=== PATIENT | female | born 1950 | race Caucasian/White ===

== ENCOUNTER 2020-10-19 18:36 | Inpatient (IN) ==
[2020-10-19] MEDS ORDERED: ONDANSETRON 4 MG/2 ML VIAL IV STA (20:42)
[2020-10-19] MEDS ORDERED: ASPIRIN 325 MG TABLET PO STA (20:42)
[2020-10-19] MEDS ORDERED: ALUM/MAG/SIMETH/LIDO VISC 1:1 30 ML BOTTLE PO STA (20:42)
[2020-10-19] MEDS ORDERED: MORPHINE 4 MG/1 ML VIAL IV STA (20:49)
[2020-10-19] MEDS ORDERED: NITROGLYCERIN 2% OINT 1 INCH/GM PACK TOP STA (20:49)
[2020-10-19 21:31] LABS: Basophils % 0.5 % (0.0-0.8); Hematocrit 43.4 VOL% (35.7-47.0); Hemoglobin 14.1 GM/DL (12.0-16.0); Immature Granulocytes % 0.6 %; Immature Granulocytes Absolute 0.05 #; Lymphocytes # 1.9 10*3/uL (1.4-4.0); Lymphocytes % 24.7 % (21.3-54.2); Mean Corpuscular HGB Conc 32.5 GM/DL (32-36); Mean Corpuscular Volume 84.3 FL (87-102); Monocytes % 7.1 % (1.7-12.7); Neutrophils % 67.1 % (38.7-73.9); Platelet Count 220 T/CUMM (130-400); Red Blood Count 5.15 MC/CUMM (3.8-5.5); White Blood Count 7.8 T/CUMM (4-12)
[2020-10-19 21:41] LABS: INR 0.9; PT Patient Result 9.8 SECS (9.8-11.9)
[2020-10-19 21:52] LABS: Alanine Aminotransferase 17 U/L (13-56); Albumin 3.4 G/DL (3.4-5.0); Alkaline Phosphatase 98 U/L (45-117); Aspartate Amino Transferase 12 U/L (0-37); Bilirubin,Total < 0.39 MG/DL (0.2-1.0); Blood Urea Nitrogen 27 MG/DL (7-18); Calcium 8.8 MG/DL (8.5-10.1); Carbon Dioxide 25 MMOL/L (21-32); Estimated Glom Filtration Rate 28 ML/MIN; Glucose 140 MG/DL (74-106); Osmolality,Calculated 285.4 MOS/KG (273-304); Potassium 4.3 MMOL/L (3.5-5.1); Sodium 140 MMOL/L (136-145); Total Protein 6.7 G/DL (6.4-8.3)
[2020-10-19 21:53] LABS: Ferritin 148.7 ng/ml (8-252)
[2020-10-19] MEDS ORDERED: cefTRIAXone 1,000 MG in SODIUM CHLORIDE 0.9% 100 ML IV STA (22:25)
[2020-10-19] MEDS ORDERED: ALBUTEROL NEB SOLN 5 MG/ML 20 ML/BOTTLE CONT NEB STA (22:25)
[2020-10-19] MEDS ORDERED: methylPREDNISolone SOD SUC 125 MG/2 ML VIAL IV STA (22:25)
[2020-10-19] MEDS ORDERED: GLUCAGON 1 MG VIAL IM PRN (23:55)
[2020-10-19] MEDS ORDERED: ONDANSETRON 4 MG/2 ML VIAL IV PRN (23:55)
[2020-10-19] MEDS ORDERED: MORPHINE 4 MG/1 ML VIAL IV PRN (23:55)
[2020-10-19] MEDS ORDERED: DEXTROSE 50% 25 GM/50 ML VIAL IV PRN (23:55)
[2020-10-20 00:14] LABS: Troponin I < 0.015 NG/ML (0.00-0.045)
[2020-10-20] MEDS: ALBUTEROL/IPRATROPIUM 3 ML NEB RESP TX SCH ×7 (00:45→23:39)
[2020-10-20] MEDS: SODIUM CHLORIDE 0.9% 1,000 ML IV SCH ×2 (01:47→21:19)
[2020-10-20 03:03] LABS: Basophils % 0.2 % (0.0-0.8); Hematocrit 43.2 VOL% (35.7-47.0); Hemoglobin 13.7 GM/DL (12.0-16.0); Immature Granulocytes % 0.6 %; Immature Granulocytes Absolute 0.06 #; Lymphocytes # 0.5 10*3/uL (1.4-4.0); Lymphocytes % 4.8 % (21.3-54.2); Mean Corpuscular HGB Conc 31.7 GM/DL (32-36); Mean Corpuscular Volume 86.2 FL (87-102); Mean Platelet Volume 10.9 FL (9.6-12.0); Monocytes % 1.3 % (1.7-12.7); Neutrophils % 93.1 % (38.7-73.9); Platelet Count 171 T/CUMM (130-400); Red Blood Count 5.01 MC/CUMM (3.8-5.5); Red Cell Distribution Width 14.1 % (9.3-17.3); White Blood Count 9.9 T/CUMM (4-12)
[2020-10-20 03:37] LABS: Alanine Aminotransferase 15 U/L (13-56); Albumin 3.3 G/DL (3.4-5.0); Alkaline Phosphatase 96 U/L (45-117); Aspartate Amino Transferase 14 U/L (0-37); Bilirubin,Total < 0.39 MG/DL (0.2-1.0); Blood Urea Nitrogen 31 MG/DL (7-18); Calcium 8.4 MG/DL (8.5-10.1); Carbon Dioxide 20 MMOL/L (21-32); Estimated Glom Filtration Rate 25 ML/MIN; Glucose 343 MG/DL (74-106); HDL Cholesterol 56 MG/DL (40-60); Osmolality,Calculated 295.7 MOS/KG (273-304); Potassium 3.2 MMOL/L (3.5-5.1); Risk Ratio 3.71; Sodium 138 MMOL/L (136-145); Triglycerides 80 MG/DL (2-150)
[2020-10-20 03:38] LABS: Band Neutrophils 4 % (0-10); Lymphocytes 4 % (20-55); Segmented Neutrophils 91 % (50-85); Total Cells Counted 100
[2020-10-20 03:45] LABS: Platelet Estimate Normal
[2020-10-20 03:46] LABS: Hypochromasia Slight
[2020-10-20] MEDS: methylPREDNISolone SOD SUC 40 MG/1 ML VIAL IV SCH ×3 (06:36→21:44)
[2020-10-20] MEDS: DOCUSATE SODIUM 100 MG CAPSULE PO SCH ×2 (08:19→21:43)
[2020-10-20] MEDS: PANTOPRAZOLE 40 MG TABLET PO SCH (08:20)
[2020-10-20] MEDS ORDERED: DEXTROSE 50% 25 GM/50 ML VIAL IV PRN (10:11)
[2020-10-20] MEDS: POTASSIUM CHLORIDE 20 MEQ TABLET PO SCH (10:23)
[2020-10-20] MEDS: amLODIPine 5 MG TABLET PO SCH (10:59)
[2020-10-20] MEDS: MOMETASONE/FORMOTEROL 200-5 INHALER 8.8 GM INH SCH (10:59)
[2020-10-20] MEDS: INSULIN LISPRO 100 UNIT/ML SUBCUT SCH ×3 (11:03→21:43)
[2020-10-20] MEDS: cefTRIAXone 1,000 MG in SYRINGE 1 EACH IV SCH (21:43)
[2020-10-21] MEDS: ALBUTEROL/IPRATROPIUM 3 ML NEB RESP TX SCH ×4 (02:20→19:35)
[2020-10-21] MEDS: methylPREDNISolone SOD SUC 40 MG/1 ML VIAL IV SCH ×3 (06:14→21:17)
[2020-10-21] MEDS: LEVOTHYROXINE 175 MCG TABLET PO SCH (06:19)
[2020-10-21] MEDS: DOCUSATE SODIUM 100 MG CAPSULE PO SCH ×2 (09:10→21:14)
[2020-10-21] MEDS: lisinopriL 20 MG TABLET PO SCH (09:10)
[2020-10-21] MEDS: PANTOPRAZOLE 40 MG TABLET PO SCH (09:10)
[2020-10-21] MEDS: CITALOPRAM 20 MG TABLET PO SCH (09:10)
[2020-10-21] MEDS: amLODIPine 5 MG TABLET PO SCH (09:11)
[2020-10-21] MEDS: INSULIN LISPRO 100 UNIT/ML SUBCUT SCH ×4 (09:11→21:15)
[2020-10-21] MEDS: POTASSIUM CHLORIDE 20 MEQ TABLET PO SCH (09:11)
[2020-10-21] MEDS: MOMETASONE/FORMOTEROL 200-5 INHALER 8.8 GM INH SCH (09:18)
[2020-10-21] MEDS: SODIUM CHLORIDE 0.9% 1,000 ML IV SCH (09:33)
[2020-10-21] MEDS: ACETAMINOPHEN 325 MG TABLET PO PRN (15:17)
[2020-10-21] MEDS: cefTRIAXone 1,000 MG in SYRINGE 1 EACH IV SCH (21:14)
[2020-10-22] MEDS: ALBUTEROL/IPRATROPIUM 3 ML NEB RESP TX SCH ×5 (00:20→20:30)
[2020-10-22] MEDS: methylPREDNISolone SOD SUC 40 MG/1 ML VIAL IV SCH ×3 (05:41→21:06)
[2020-10-22] MEDS: LEVOTHYROXINE 175 MCG TABLET PO SCH (05:41)
[2020-10-22 07:15] LABS: Basophils % 0.1 % (0.0-0.8); Hematocrit 40.2 VOL% (35.7-47.0); Hemoglobin 12.5 GM/DL (12.0-16.0); Immature Granulocytes Absolute 0.44 #; Lymphocytes # 0.9 10*3/uL (1.4-4.0); Lymphocytes % 3.9 % (21.3-54.2); Mean Corpuscular HGB Conc 31.1 GM/DL (32-36); Mean Corpuscular Volume 87.4 FL (87-102); Mean Platelet Volume 11.5 FL (9.6-12.0); Monocytes % 2.4 % (1.7-12.7); Neutrophils % 91.6 % (38.7-73.9); Platelet Count 214 T/CUMM (130-400); Red Cell Distribution Width 14.6 % (9.3-17.3); White Blood Count 22.1 T/CUMM (4-12)
[2020-10-22 07:24] LABS: Calcium 8.7 MG/DL (8.5-10.1); Osmolality,Calculated 297.8 MOS/KG (273-304); Potassium 5.5 MMOL/L (3.5-5.1)
[2020-10-22 08:11] LABS: Band Neutrophils 2 % (0-10); Lymphocytes 3 % (20-55); Platelet Estimate Normal; Segmented Neutrophils 93 % (50-85); Total Cells Counted 100
[2020-10-22] MEDS: CITALOPRAM 20 MG TABLET PO SCH (08:43)
[2020-10-22] MEDS: POTASSIUM CHLORIDE 20 MEQ TABLET PO SCH (08:43)
[2020-10-22] MEDS: lisinopriL 20 MG TABLET PO SCH (08:43)
[2020-10-22] MEDS: DOCUSATE SODIUM 100 MG CAPSULE PO SCH ×2 (08:43→21:05)
[2020-10-22] MEDS: PANTOPRAZOLE 40 MG TABLET PO SCH (08:43)
[2020-10-22] MEDS: amLODIPine 5 MG TABLET PO SCH (08:44)
[2020-10-22] MEDS: MOMETASONE/FORMOTEROL 200-5 INHALER 8.8 GM INH SCH (08:44)
[2020-10-22] MEDS: INSULIN LISPRO 100 UNIT/ML SUBCUT SCH ×4 (08:44→21:05)
[2020-10-22] MEDS: ACETAMINOPHEN 325 MG TABLET PO PRN (10:40)
[2020-10-22] MEDS ORDERED: amLODIPine 5 MG TABLET PO ONE (13:01)
[2020-10-22] MEDS: SODIUM CHLORIDE 0.9% 1,000 ML IV SCH ×2 (13:30→14:07)
[2020-10-22] MEDS ORDERED: FUROSEMIDE 40 MG TABLET PO ONE (14:05)
[2020-10-22 16:54] LABS: Bilirubin,Urine Negative (Negative); Blood, Urine Small mg/dL (Negative); Glucose,Urine (UA) 50 mg/dL (Negative); Ketones,Urine Negative (Negative); Mucus,Urine Occasional /LPF (Occasional); Nitrite,Urine Negative (Negative); Protein,Urine Negative; RBC,Urine 1 /HPF (0-4); Urine Appearance CLEAR (Clear); Urine Color Colorless (Yellow); Urine Specific Gravity 1.008 (1.001-1.035); Urine Urobilinogen < 2.0 EU/DL (0.2-1.0); WBC,Urine <1 /HPF (0-6)
[2020-10-22] MEDS: cefTRIAXone 1,000 MG in SYRINGE 1 EACH IV SCH (21:09)
[2020-10-23] MEDS: ALBUTEROL/IPRATROPIUM 3 ML NEB RESP TX SCH ×7 (00:24→23:33)
[2020-10-23] MEDS: LEVOTHYROXINE 175 MCG TABLET PO SCH (05:41)
[2020-10-23] MEDS: methylPREDNISolone SOD SUC 40 MG/1 ML VIAL IV SCH ×3 (05:41→21:50)
[2020-10-23 06:50] LABS: Basophils % 0.1 % (0.0-0.8); Hematocrit 42.4 VOL% (35.7-47.0); Hemoglobin 13.3 GM/DL (12.0-16.0); Immature Granulocytes % 1.4 %; Immature Granulocytes Absolute 0.21 #; Lymphocytes % 6.8 % (21.3-54.2); Mean Corpuscular HGB Conc 31.4 GM/DL (32-36); Mean Corpuscular Volume 87.1 FL (87-102); Mean Platelet Volume 11.2 FL (9.6-12.0); Monocytes % 3.9 % (1.7-12.7); Neutrophils % 87.8 % (38.7-73.9); Platelet Count 200 T/CUMM (130-400); Red Blood Count 4.87 MC/CUMM (3.8-5.5); Red Cell Distribution Width 14.6 % (9.3-17.3); White Blood Count 14.9 T/CUMM (4-12)
[2020-10-23 07:10] LABS: Bilirubin,Total 0.7 MG/DL (0.2-1.0); Calcium 8.9 MG/DL (8.5-10.1); Potassium 5.5 MMOL/L (3.5-5.1); Thyroid Stimulating Hormone 3.03 uIU/ml (0.358-3.74); Total Protein 6.7 G/DL (6.4-8.3)
[2020-10-23] MEDS: INSULIN LISPRO 100 UNIT/ML SUBCUT SCH ×4 (08:24→21:50)
[2020-10-23] MEDS: DOCUSATE SODIUM 100 MG CAPSULE PO SCH ×2 (08:24→21:50)
[2020-10-23] MEDS: CITALOPRAM 20 MG TABLET PO SCH (08:25)
[2020-10-23] MEDS: lisinopriL 20 MG TABLET PO SCH (08:25)
[2020-10-23] MEDS: amLODIPine 10 MG TABLET PO SCH (08:25)
[2020-10-23] MEDS: MOMETASONE/FORMOTEROL 200-5 INHALER 8.8 GM INH SCH (08:25)
[2020-10-23] MEDS: PANTOPRAZOLE 40 MG TABLET PO SCH (08:25)
[2020-10-23] MEDS: NICOTINE 21 MG/24 HR PATCH TRANSDERM SCH (14:30)
[2020-10-23] MEDS: cefTRIAXone 1,000 MG in SYRINGE 1 EACH IV SCH (21:50)
[2020-10-24] MEDS: ALBUTEROL/IPRATROPIUM 3 ML NEB RESP TX SCH ×5 (03:34→18:56)
[2020-10-24 05:24] LABS: Basophils % 0.3 % (0.0-0.8); Hematocrit 45.3 VOL% (35.7-47.0); Hemoglobin 14.5 GM/DL (12.0-16.0); Immature Granulocytes % 2.6 %; Immature Granulocytes Absolute 0.31 #; Lymphocytes # 0.7 10*3/uL (1.4-4.0); Lymphocytes % 5.9 % (21.3-54.2); Mean Corpuscular Volume 86.1 FL (87-102); Mean Platelet Volume 11.3 FL (9.6-12.0); Monocytes % 3.1 % (1.7-12.7); Neutrophils % 88.1 % (38.7-73.9); Platelet Count 223 T/CUMM (130-400); Red Blood Count 5.26 MC/CUMM (3.8-5.5); Red Cell Distribution Width 14.4 % (9.3-17.3); White Blood Count 12.1 T/CUMM (4-12)
[2020-10-24 05:48] LABS: Calcium 8.8 MG/DL (8.5-10.1); Osmolality,Calculated 297.1 MOS/KG (273-304); Potassium 5.9 MMOL/L (3.5-5.1)
[2020-10-24] MEDS: methylPREDNISolone SOD SUC 40 MG/1 ML VIAL IV SCH ×3 (06:08→22:27)
[2020-10-24] MEDS: LEVOTHYROXINE 175 MCG TABLET PO SCH (06:11)
[2020-10-24] MEDS: INSULIN LISPRO 100 UNIT/ML SUBCUT SCH ×4 (08:37→22:54)
[2020-10-24] MEDS: NICOTINE 21 MG/24 HR PATCH TRANSDERM SCH (08:38)
[2020-10-24] MEDS: PANTOPRAZOLE 40 MG TABLET PO SCH (08:38)
[2020-10-24] MEDS: DOCUSATE SODIUM 100 MG CAPSULE PO SCH ×2 (08:39→22:22)
[2020-10-24] MEDS: amLODIPine 10 MG TABLET PO SCH (08:39)
[2020-10-24] MEDS: CITALOPRAM 20 MG TABLET PO SCH (08:39)
[2020-10-24] MEDS: MOMETASONE/FORMOTEROL 200-5 INHALER 8.8 GM INH SCH (08:40)
[2020-10-24] MEDS: lisinopriL 20 MG TABLET PO SCH (08:40)
[2020-10-24] MEDS ORDERED: SODIUM POLYSTYRENE SULFATE 15 GM/60 ML BOTTLE PO STA (08:42)
[2020-10-24] MEDS: ENOXAPARIN 30 MG/0.3 ML SYRINGE SUBCUT SCH (09:30)
[2020-10-24] MEDS ORDERED: cloNIDine 0.1 MG TABLET PO PRN (09:44)
[2020-10-24] MEDS ORDERED: cloNIDine 0.1 MG TABLET PO SCH (12:00)
[2020-10-24] MEDS: cefTRIAXone 1,000 MG in SYRINGE 1 EACH IV SCH (22:26)
[2020-10-25] MEDS: ALBUTEROL/IPRATROPIUM 3 ML NEB RESP TX SCH ×7 (00:41→23:45)
[2020-10-25 04:50] LABS: Eosinophils # 0.5 10*3/uL (0.0-0.87); Eosinophils % 4.6 % (0.00-10.9); Hematocrit 47.4 VOL% (35.7-47.0); Hemoglobin 15.1 GM/DL (12.0-16.0); Immature Granulocytes % 5.4 %; Lymphocytes # 0.8 10*3/uL (1.4-4.0); Lymphocytes % 6.9 % (21.3-54.2); Mean Corpuscular HGB Conc 31.9 GM/DL (32-36); Mean Corpuscular Volume 85.7 FL (87-102); Mean Platelet Volume 11.3 FL (9.6-12.0); Neutrophils % 79.1 % (38.7-73.9); Platelet Count 211 T/CUMM (130-400); Red Blood Count 5.53 MC/CUMM (3.8-5.5); Red Cell Distribution Width 14.3 % (9.3-17.3); White Blood Count 11.2 T/CUMM (4-12)
[2020-10-25 05:14] LABS: Calcium 8.5 MG/DL (8.5-10.1); Osmolality,Calculated 294.4 MOS/KG (273-304); Potassium 5.8 MMOL/L (3.5-5.1)
[2020-10-25 05:15] LABS: Lymphocytes 9 % (20-55); Platelet Estimate Adequate; Segmented Neutrophils 87 % (50-85); Total Cells Counted 100
[2020-10-25] MEDS: LEVOTHYROXINE 175 MCG TABLET PO SCH (06:23)
[2020-10-25] MEDS: INSULIN LISPRO 100 UNIT/ML SUBCUT SCH ×4 (09:31→21:54)
[2020-10-25] MEDS: ENOXAPARIN 30 MG/0.3 ML SYRINGE SUBCUT SCH (09:33)
[2020-10-25] MEDS: amLODIPine 10 MG TABLET PO SCH (09:34)
[2020-10-25] MEDS: PANTOPRAZOLE 40 MG TABLET PO SCH (09:35)
[2020-10-25] MEDS: DOCUSATE SODIUM 100 MG CAPSULE PO SCH ×2 (09:35→21:52)
[2020-10-25] MEDS: GLIMEPIRIDE 2 MG TABLET PO SCH (09:35)
[2020-10-25] MEDS: CITALOPRAM 20 MG TABLET PO SCH (09:35)
[2020-10-25] MEDS: methylPREDNISolone SOD SUC 40 MG/1 ML VIAL IV SCH ×2 (09:36→21:52)
[2020-10-25] MEDS: NICOTINE 21 MG/24 HR PATCH TRANSDERM SCH (09:41)
[2020-10-25] MEDS: MOMETASONE/FORMOTEROL 200-5 INHALER 8.8 GM INH SCH (09:44)
[2020-10-25] MEDS: SODIUM CHLORIDE 0.9% 1,000 ML IV SCH ×2 (09:49→23:46)
[2020-10-25] MEDS ORDERED: DEXTROSE 50% 25 GM/50 ML VIAL IV PRN (09:50)
[2020-10-25] MEDS: cefTRIAXone 1,000 MG in SYRINGE 1 EACH IV SCH (21:53)
[2020-10-26] MEDS: ALBUTEROL/IPRATROPIUM 3 ML NEB RESP TX SCH ×6 (04:32→23:59)
[2020-10-26 06:40] LABS: Hematocrit 46.6 VOL% (35.7-47.0); Immature Granulocytes % 4.7 %; Immature Granulocytes Absolute 0.57 #; Lymphocytes # 0.9 10*3/uL (1.4-4.0); Lymphocytes % 7.5 % (21.3-54.2); Mean Corpuscular HGB Conc 32.2 GM/DL (32-36); Mean Corpuscular Volume 85.2 FL (87-102); Mean Platelet Volume 10.8 FL (9.6-12.0); Monocytes % 3.1 % (1.7-12.7); Neutrophils % 84.7 % (38.7-73.9); Platelet Count 209 T/CUMM (130-400); Red Blood Count 5.47 MC/CUMM (3.8-5.5); Red Cell Distribution Width 14.3 % (9.3-17.3); White Blood Count 12.1 T/CUMM (4-12)
[2020-10-26 07:09] LABS: Calcium 8.3 MG/DL (8.5-10.1); Potassium 5.8 MMOL/L (3.5-5.1)
[2020-10-26 07:11] LABS: Lymphocytes 14 % (20-55); Platelet Estimate Adequate; Segmented Neutrophils 82 % (50-85); Total Cells Counted 100
[2020-10-26] MEDS: LEVOTHYROXINE 175 MCG TABLET PO SCH (07:20)
[2020-10-26] MEDS: DOCUSATE SODIUM 100 MG CAPSULE PO SCH ×2 (10:06→21:01)
[2020-10-26] MEDS: PANTOPRAZOLE 40 MG TABLET PO SCH (10:06)
[2020-10-26] MEDS: amLODIPine 10 MG TABLET PO SCH (10:06)
[2020-10-26] MEDS: GLIMEPIRIDE 2 MG TABLET PO SCH (10:06)
[2020-10-26] MEDS: CITALOPRAM 20 MG TABLET PO SCH (10:06)
[2020-10-26] MEDS: NICOTINE 21 MG/24 HR PATCH TRANSDERM SCH (10:07)
[2020-10-26] MEDS: INSULIN LISPRO 100 UNIT/ML SUBCUT SCH ×4 (10:07→21:03)
[2020-10-26] MEDS: ENOXAPARIN 30 MG/0.3 ML SYRINGE SUBCUT SCH (10:07)
[2020-10-26] MEDS: methylPREDNISolone SOD SUC 40 MG/1 ML VIAL IV SCH ×2 (10:08→21:01)
[2020-10-26] MEDS: MOMETASONE/FORMOTEROL 200-5 INHALER 8.8 GM INH SCH (10:08)
[2020-10-26] MEDS: SODIUM CHLORIDE 0.9% 1,000 ML IV SCH (12:21)
[2020-10-26] MEDS: cefTRIAXone 1,000 MG in SYRINGE 1 EACH IV SCH (21:02)
[2020-10-27] MEDS: SODIUM CHLORIDE 0.9% 1,000 ML IV SCH ×2 (01:45→16:40)
[2020-10-27] MEDS: ALBUTEROL/IPRATROPIUM 3 ML NEB RESP TX SCH ×6 (03:25→23:45)
[2020-10-27 06:43] LABS: Basophils # 0.1 10*3/uL (0.0-0.2); Basophils % 0.6 % (0.0-0.8); Hematocrit 45.6 VOL% (35.7-47.0); Hemoglobin 14.6 GM/DL (12.0-16.0); Immature Granulocytes % 4.6 %; Immature Granulocytes Absolute 0.62 #; Lymphocytes # 0.9 10*3/uL (1.4-4.0); Lymphocytes % 6.8 % (21.3-54.2); Mean Corpuscular Volume 84.8 FL (87-102); Mean Platelet Volume 11.2 FL (9.6-12.0); Monocytes % 3.1 % (1.7-12.7); Neutrophils % 84.9 % (38.7-73.9); Platelet Count 228 T/CUMM (130-400); Red Blood Count 5.38 MC/CUMM (3.8-5.5); Red Cell Distribution Width 14.3 % (9.3-17.3); White Blood Count 13.4 T/CUMM (4-12)
[2020-10-27 07:02] LABS: Calcium 8.8 MG/DL (8.5-10.1); Osmolality,Calculated 296.8 MOS/KG (273-304); Potassium 5.7 MMOL/L (3.5-5.1)
[2020-10-27 07:08] LABS: Hypochromasia 1+; Lymphocytes 6 % (20-55); Segmented Neutrophils 90 % (50-85); Total Cells Counted 100
[2020-10-27] MEDS: LEVOTHYROXINE 175 MCG TABLET PO SCH (07:08)
[2020-10-27 07:09] LABS: Microcytosis 1+; Ovalocytes Slight
[2020-10-27] MEDS ORDERED: SODIUM POLYSTYRENE SULFATE 15 GM/60 ML BOTTLE PO STA (08:43)
[2020-10-27] MEDS: methylPREDNISolone SOD SUC 40 MG/1 ML VIAL IV SCH (09:16)
[2020-10-27] MEDS: INSULIN LISPRO 100 UNIT/ML SUBCUT SCH ×4 (09:17→20:36)
[2020-10-27] MEDS: CITALOPRAM 20 MG TABLET PO SCH (09:17)
[2020-10-27] MEDS: PANTOPRAZOLE 40 MG TABLET PO SCH (09:17)
[2020-10-27] MEDS: GLIMEPIRIDE 2 MG TABLET PO SCH (09:17)
[2020-10-27] MEDS: ENOXAPARIN 30 MG/0.3 ML SYRINGE SUBCUT SCH (09:17)
[2020-10-27] MEDS: amLODIPine 10 MG TABLET PO SCH (09:17)
[2020-10-27] MEDS: NICOTINE 21 MG/24 HR PATCH TRANSDERM SCH (09:17)
[2020-10-27] MEDS: MOMETASONE/FORMOTEROL 200-5 INHALER 8.8 GM INH SCH (09:18)
[2020-10-27] MEDS: DOCUSATE SODIUM 100 MG CAPSULE PO SCH ×2 (09:24→20:32)
[2020-10-27] MEDS: cefTRIAXone 1,000 MG in SYRINGE 1 EACH IV SCH (20:32)
[2020-10-28] MEDS: ALBUTEROL/IPRATROPIUM 3 ML NEB RESP TX SCH ×3 (03:14→11:17)
[2020-10-28] MEDS: SODIUM CHLORIDE 0.9% 1,000 ML IV SCH (05:42)
[2020-10-28] MEDS: LEVOTHYROXINE 175 MCG TABLET PO SCH (05:42)
[2020-10-28 06:11] LABS: Basophils % 0.3 % (0.0-0.8); Eosinophils % 0.2 % (0.00-10.9); Hematocrit 42.2 VOL% (35.7-47.0); Hemoglobin 13.3 GM/DL (12.0-16.0); Immature Granulocytes % 3.8 %; Immature Granulocytes Absolute 0.49 #; Lymphocytes # 2.6 10*3/uL (1.4-4.0); Lymphocytes % 20.5 % (21.3-54.2); Mean Corpuscular HGB Conc 31.5 GM/DL (32-36); Mean Corpuscular Volume 85.6 FL (87-102); Mean Platelet Volume 10.6 FL (9.6-12.0); Neutrophils % 68.2 % (38.7-73.9); Platelet Count 210 T/CUMM (130-400); Red Blood Count 4.93 MC/CUMM (3.8-5.5); Red Cell Distribution Width 14.6 % (9.3-17.3); White Blood Count 12.7 T/CUMM (4-12)
[2020-10-28 06:24] LABS: Calcium 8.2 MG/DL (8.5-10.1); Osmolality,Calculated 297.3 MOS/KG (273-304); Potassium 4.3 MMOL/L (3.5-5.1)
[2020-10-28] MEDS: INSULIN LISPRO 100 UNIT/ML SUBCUT SCH ×2 (10:05→11:46)
[2020-10-28] MEDS: DOCUSATE SODIUM 100 MG CAPSULE PO SCH (10:06)
[2020-10-28] MEDS: amLODIPine 10 MG TABLET PO SCH (10:06)
[2020-10-28] MEDS: CITALOPRAM 20 MG TABLET PO SCH (10:06)
[2020-10-28] MEDS: NICOTINE 21 MG/24 HR PATCH TRANSDERM SCH (10:07)
[2020-10-28] MEDS: PANTOPRAZOLE 40 MG TABLET PO SCH (10:07)
[2020-10-28] MEDS: ENOXAPARIN 30 MG/0.3 ML SYRINGE SUBCUT SCH (10:07)
[2020-10-28] MEDS: GLIMEPIRIDE 2 MG TABLET PO SCH (10:07)
[2020-10-28] MEDS: methylPREDNISolone SOD SUC 40 MG/1 ML VIAL IV SCH (10:10)
[2020-10-28] MEDS: MOMETASONE/FORMOTEROL 200-5 INHALER 8.8 GM INH SCH (10:10)
[2020-10-28 11:39] VITALS: BP 137/68
== END 2020-10-28 13:00 | disposition home or self-care (01) | DRG 190 ==
LOC: N.EDINP 18:36 → N.ED 18:36 → N.TELEN 23:12
PROVIDERS: ADMIT Internal Medicine; ATTEND Internal Medicine